=== PATIENT | female | born 1945 | race Caucasian/White ===

== ENCOUNTER 2019-02-28 18:32 | Emergency (ER) | payer MEDICARE, BC, SELFPAY ==
[2019-02-28 18:39] VITALS: BP 143/103; PULSE 90; RESP 16; TEMP 36.8; O2SAT 98; BMI 24.1
--- NOTE | 2019-02-28 18:39 | W.ED.UPPEXIN ---
HPI - Extremity Injury (Upper) General: Chief Complaint: Extremity Injury, Upper Stated Complaint: L HAND INJURY Time Seen by Provider: 02/28/19 18:39 Source: patient and family Mode of arrival: ambulatory Limitations: no limitations History of Present Illness: HPI narrative: scratched hand on a deck; reports bleeding uncontrolled MD complaint: injury to: left and hand Onset (ago): minute(s) Other Extremity Injury: Left: hand Other injuries: none Place: home Severity: mild Relieving factors: none Exacerbating factors: none Context: other (scrape ) Associated symptoms: Reports no associated symptoms Review of Systems Skin/Breast: Reports: other (skin tear to L hand) PFSH ED PFSH: Statuses (acute, chronic, etc) shown below reflect problem list status as previously entered and may not be historically accurate Social History Smoking and tobacco status: current every day smoker Physical Exam Const: COMMON NORMALS: no apparent distress, oriented x3, alert and well nourished Neuro: COMMON NORMALS: oriented x3 SENSORIUM/ORIENTATION: Yes alert Skin: NARRATIVE SKIN EXAM: skin tear to dorsum of L hand; small venous bleed Procedures Laceration Laceration 1: Site: hand (L dorsum hand) Side (If applicable): left Size (cm): 3.5 Description: flap Depth: simple, single layer Pre-repair: irrigated extensively Skin layer closed with: other (steri strips; small venous bleed with tied off with vicryl stitch ) Course Vital Signs: Vital signs: Vital Signs Temperature 98.2 F 02/28/19 18:39 Pulse Rate 72 02/28/19 19:14 Respiratory Rate 16 02/28/19 18:39 Blood Pressure 143/103 02/28/19 18:39 Pulse Oximetry 98 02/28/19 18:39 Discharge Plan Discharge Patient Disposition: Home, Self-Care Clinical Impression: Skin tear of hand without complication Condition: Stable Discharge Orders: Discharge Order (Routine); Ordered 02/28/19 Ordered By: Lakshmi Whyte Referrals: Vinny Moss [Family Provider] - Activity Restrictions/Additional Instructions: Steri strips should fall off on their own in 7-10 days. Keep wound clean. If bleeding returns and cannot be controlled at home please return to ED. Coding Level of Care Code ED Package Yarns Drying Machine Operator for Judyg Fwd Exam Problem Focused
[2019-02-28 19:14] VITALS: PULSE 72
[2019-02-28 20:07] VITALS: BP 128/77; PULSE 68; RESP 20; O2SAT 96
== END 2019-02-28 20:08 | disposition home or self-care (01) ==
PROVIDERS: Emergency Provider Physician Assistant; Family Provider Student in an Organized Health Care Education/Training Program
DX: S61.412A Laceration without foreign body of left hand, initial encounter (principal); W45.8XXA Other foreign body or object entering through skin, initial encounter; F17.210 Nicotine dependence, cigarettes, uncomplicated
CPT/HCPCS: 12002; 99281

== ENCOUNTER → 2022-01-16 09:17 | Outpatient (BNVA) | payer MEDICARE, BC, SELFPAY | PROVIDERS: Family Provider Student in an Organized Health Care Education/Training Program; Visit Provider Nurse Practitioner Family | DX: R50.9 Fever, unspecified (principal); R10.11 Right upper quadrant pain | CPT/HCPCS: 80053; 80074; 83690; 87400 ==

== ENCOUNTER 2023-05-09 11:52 | Inpatient (IN) | payer MEDICARE, BC, SELFPAY ==
[2023-05-09] VITALS (10 sets, daily range): BP systolic 129–145; BP diastolic 81–92; PULSE 74–106; RESP 16–26; TEMP 36.6–36.8; O2SAT 95–99; BMI 25.6
--- NOTE | 2023-05-09 12:00 | XRR_ITS ---
PROCEDURE INFORMATION: Exam: XR Right Shoulder Exam date and time: 05/09/2023 12:10 PM Age: 78 years old Clinical indication: Injury or trauma; Fall; Blunt trauma (contusions or hematomas); Shoulder; Right TECHNIQUE: Imaging protocol: Radiologic exam of the right shoulder. Views: 2 or more views. COMPARISON: CR XR soft tissue neck [id number] 10/28/2017 8:53 PM FINDINGS: Bones/joints: There is an acute comminuted fracture involving the humeral head with mild displacement of fracture fragments laterally. The dominant fracture line extends through the base of the humeral head. Soft tissues: Normal. XR/XR shoulder RT min 2V* [id number] IMPRESSION: Acute comminuted humeral head fracture
--- NOTE | 2023-05-09 12:11 | XRR_ITS ---
PROCEDURE INFORMATION: Exam: XR Right Hip Exam date and time: 05/09/2023 12:22 PM Age: 78 years old Clinical indication: Injury or trauma; Fall; Blunt trauma (contusions or hematomas); Right; Hip; Additional info: Trauma - need pelvis too TECHNIQUE: Imaging protocol: Radiologic exam of the right hip. Views: 1 view hip with pelvis when performed. COMPARISON: CR XR pelvis 1-2V* [id number] 10/28/2017 8:28 PM FINDINGS: Bones/joints: A hip prosthesis is well seated and well aligned. I see no worrisome abnormality. Soft tissues: Unremarkable. XR/XR hip RT 2-3V wo/w pel* [id number] IMPRESSION: No acute findings.
[2023-05-09] MEDS: fentaNYL 50 mcg/mL INJ 2mL IVP (12:19)
--- NOTE | 2023-05-09 12:25 | W.ED.EXTPRO ---
HPI - Extremity Problem General: Chief complaint: Extremity Injury, Upper Stated complaint: rt shoulder pain post fall Time Seen by Provider: 05/09/23 12:00 Source: patient Mode of arrival: EMS History of Present Illness: 78-year-old female was at a local restaurant patient had mechanical ground-level fall. She slipped on the floor and landed on her right side complaining of right hip pain and right shoulder pain unable to move the right arm. She has no numbness and tingling to the arm she did not strike her head she did not lose consciousness. She denies any other injuries in the right hip and right shoulder. MD Complaint: extremity pain Onset (ago): minute(s) Pain Consistency: constant Location: right (Hip and shoulder) Quality: sharp Relieving factors: immobilization and rest Exacerbating factors: range of motion Associated symptoms: Deny arthralgias, chest pain, fever(s), myalgias, rash or short of breath Review of Systems Const: Denies: fever(s) Card: Denies: chest pain Resp: Denies: dyspnea GI: Denies: abdominal pain : Denies: dysuria, urinary frequency or urinary urgency Musc: Reports: joint pain; Denies: neck pain or back pain Skin/Breast: Denies: rash PFSH ED PFSH: Social History Smoking and tobacco/nicotine status: current every day tobacco/nicotine user Physical Exam Const: GENERAL APPEARANCE: cooperative and comfortable ORIENTATION/CONSCIOUSNESS: Yes awake, Yes oriented to person, Yes oriented to place and Yes oriented to time HENMT: COMMON NORMALS: normocephalic, atraumatic and hearing grossly normal bilaterally HEAD & SCALP: normocephalic and atraumatic Resp: COMMON NORMALS: normal respiratory effort, No retractions, No use of accessory muscles and clear to auscultation bilaterally AUSCULTATION: clear to auscultation bilaterally Cardio: COMMON NORMALS: regular rate, regular rhythm and No murmurs present (Cardio) RATE: regular rate RHYTHM: regular rhythm GI: COMMON NORMALS: Soft to palpation and No hepatosplenomegaly present AUSCULTATION: Yes normoactive bowel sounds PALPATION: Yes Soft to palpation, No Tenderness to palpation present (GI), No Guarding due to palpation present (GI) and Yes No hepatosplenomegaly present Extremity: COMMON NORMALS: normal to inspection, capillary refill normal, no clubbing, cyanosis or edema, no calf tenderness and no pedal edema OTHER: Swelling of the proximal humerus consistent with proximal humerus fracture Neuro: SENSORIUM/ORIENTATION: Yes oriented to person, Yes oriented to place and Yes oriented to time Skin: COMMON NORMALS: no rashes or lesions noted GENERAL SKIN EXAM: no rashes or lesions noted Course Vital Signs: Vital signs: Vital Signs Temperature 98.3 F 05/09/23 11:54 Pulse Rate 76 05/09/23 15:24 Respiratory Rate 18 05/09/23 15:24 Blood Pressure 129/85 05/09/23 15:24 Pulse Oximetry 98 05/09/23 15:24 Oxygen Delivery Me thod Room Air 05/09/23 13:20 MDM - Extremity (Nontraumatic) Medical Decision Making Initially patient had relatively obvious proximal humerus fracture confirmed on x-ray. She is complaining of hip pain on plain film there was no fracture. We made plans to discharge her when she got up she complained of severe pain in the hip CT was done Dr. Church reports an occult fracture of the greater trochanter. I reviewed it with Dr. Lr who is on-call for orthopedics and she states it was a nonsurgical fracture and would be managed conservatively recommended discharge with pain medications and follow-up in the office. Patient was given several rounds of pain medications but noted a unable to manage she even standing to transfer. We talked about admission for pain control with plan to go to senior care for rehab she initially was opposed to this but then as she found herself unable to manage even standing ultimately she agreed to it. Patiently placed on observation for the proximal humerus and proximal femur fracture with the plan to go to senior care for rehab. Medical Records I reviewed the patient's medical records. Lab Data Radiology Impressions Shoulder X-Ray 05/09/23 12:00 IMPRESSION: Acute comminuted humeral head fracture Hip/Pelvis X-Ray 05/09/23 12:11 IMPRESSION: No acute findings. All radiology interpretation(s) finalized by discharge Discharge Plan Discharge Patient Disposition: Placed in Observation Clinical Impression: Fracture of proximal end of right humerus, Fracture of greater trochanter of right femur Condition: Stable Prescriptions: New hydrocodone-acetaminophen 5-325 mg tablet 1 tab PO Q6H PRN (Reason: pain) Qty: 20 0RF No Action No Known Home Medications Other Ambulatory Orders: DME: Wheelchair (Order) Location: None Selected Ordered By: Addy Hackett Discharge Diet: Usual diet Discharge Activity: Limit activity as instructed Patient Instructions: Proximal Humerus Fracture (ED), Opioid Safety, Pain Management Activity Restrictions/Additional Instructions: Thank you for choosing [facility] for your healthcare needs today. Please realize this is an emergency room and that we are providing you with a medical screening exam and this may not be complete and all inclusive of all the testing and or work up that you may need to determine your ailment or severity of your illness. It is very important that you follow up as instructed or that you return to the Emergency Department should you have concerns or if your condition changes or worsens in any way. You were seen today after a fall. You have a fracture on the upper end of your humerus (upper arm bone). You should use the sling that you were fitted for in the emergency room as well as the pain medications you are given by prescription until you are released by orthopedics. Case management make arrangements for you to have an outpatient consultation with the orthopedic clinic. There is also a nondisplaced fracture of the greater trochanter (small knob of bone on the hip. This is adjacent to the prosthesis it was not visible on the plain films but was noted on the CT which was done when he had complained of pain after standing. These fractures are allowed to heal on their own and do not require any surgical intervention. Normally we will allow weightbearing as tolerated but because of your arm fracture you will not be able to use a walker for some time. You can use a wheelchair to get around. The orthopedic physician will review the greater trochanter fracture with you as well. Prior to your discharge today Dr. Mckinley the orthopedic on-call physician reviewed your CT. Coding Level of Care Code ED Director Business for Rolanda Wu
--- NOTE | 2023-05-09 13:24 | CT_ITS ---
WS: [id number] CT PELVIS NONCONTRAST HISTORY: trauma - pain after fall TECHNIQUE: Contiguous imaging is performed of the pelvis without contrast. Coronal and sagittal refor mats are reviewed. All CT scans at [facility] use at least one of these dose optimization gretta hniques: automated exposure control; mA and/or kV adjustment per patient size (includes targeted exam s where dose is matched to clinical indication); or iterative reconstruction. DLP: 329.94 mGy.cm COMPARISON: Radiograph 05/09/2023 and pelvis 10/28/2017 Bilateral hip arthroplasties. Hip prostheses appear in good position and alignment. There is a soft tissue hematoma along the RIGHT lateral hip centered at the region of the greater tro chanter. There is a sclerotic line that is seen on the radiograph obtained on the same day just deep to the greater trochanter bursal distention. On the CT evaluation through the hip is a new nondisplac ed fracture involving the proximal femur at the region of the greater trochanter. Fracture extends fr om the lateral proximal femur anteriorly and posteriorly. No displacement. IMPRESSION: 1. Acute nondisplaced fracture proximal femur in a patient status post hip arthroplasty. New acute n ondisplaced fracture anteriorly, lateral and posterior to the intertrochanteric stem. 2. Soft tissue hematoma just lateral to the RIGHT greater trochanter.
[2023-05-09] MEDS: fentaNYL 50 mcg/mL INJ 2mL 25 MCG IVP (13:30)
--- NOTE | 2023-05-09 14:44 | PC.NURSE ---
Prestidigitator accessed note for Dr. Mckinley to assess imaging while in the operating room.
[2023-05-09] MEDS: HYDROmorphone 1 mg/mL INJ 1 mL 0.5 MG IVP ×2 (17:08→20:31)
[2023-05-09] MEDS: ondansetron 2 mg/ML SDV 2 mL 4 MG IVP (17:08)
--- NOTE | 2023-05-09 18:48 | PC.NURSE ---
Attempted report, nurse not available and will call me back
--- NOTE | 2023-05-09 18:51 | P.HP_ITS ---
Providers/Chief Complaint Admitting Physician: Thee Bledsoe MD Chief Complaint: rt shoulder pain post fall History of Present Illness Sarahi Joseph is a 78 year old female with no significant past medical history, no history of CAD, no history of COPD, no history of diabetes, no history of strokes, no significant medical problems, who presents [facility] for a fall. Patient tells me that today she was with her daughter at [facility], she got up to go to [employer], when she got up to the [employer], there is a fish tank, with linoleum gavin, she stepped towards it and slipped on the linoleum gavin, she fell no significant head trauma, no loss of consciousness, she fell on the right side, she could not get up off the floor, she tells me that a nurse rushed over and helped her until ambulance arrived, here in the emergency room she had imaging she has suffered a right humeral head fracture, currently in a sling, she has a right hip prosthesis, she tells me that she has her hip replacement in [place] it was elective for osteoarthritis, she is found to have an acute nondisplaced fracture of the proximal femur in the patient status post hip arthroplasty [id number] acute nondisplaced fracture anteriorly, lateral, posterior to the intertrochanteric stem, soft tissue hematoma just lateral to the right greater trochanter. ER provider Dr. Hackett, spoke to orthopedic doctor Dr. Mckinley, as per report from Dr. Daina Mckinley had reported that both fractures will be should be managed medically, pain control, PT OT, and deciding if patient needs placement. I was told that there was no acute interventions needed, and as per orthopedic surgery patient was currently not a surgical candidate. The hospitalist team was primarily called for these orthopedic fractures for pain control, due to intractable pain, and consideration of placement. I have gone over in detail with patient, unfortunately am not orthopedic physician, so I do not know the specific details involving fracture around the hardware for her right hip prosthesis, but I was told that it should be medically managed. I am going to order a CBC, CMP, blood work, start her on fluids, get her pain under control, have PT OT evaluate her and consideration of placement, patient is agreeable Review of Systems Const: Denies: fever(s) Card: Denies: chest pain Resp: Denies: dyspnea GI: Denies: abdominal pain Musc: Reports: extremity pain; Denies: back pain Neuro: Denies: headache(s) Medications/Allergies Home Medications Medication Instructions Recorded Confirmed Last Taken Type No Known Home Medications 01/16/22 01/16/22 Unknown History hydrocodone 5 mg-acetaminophen 325 1 tab PO Q6H PRN pain #20 tabs 05/09/23 Unknown Rx mg tablet Allergies Allergy/AdvReac Type Severity Reaction Status Date / Time aspirin Allergy ALGY-Anaphy Verified 01/16/22 09:12 laxis PFSH Acute PFSH: Social History Smoking and tobacco/nicotine status: current every day tobacco/nicotine user Vitals/I&O/Wt Last Vital Signs Temp 98.3 F 05/09/23 11:54 Pulse 106 H 05/09/23 18:25 Resp 16 05/09/23 18:25 BP 131/81 05/09/23 18:25 Pulse Ox 97 05/09/23 18:25 O2 Del Method Room Air 05/09/23 18:25 Weight last 48 hrs Weight 63.503 kg Physical Exam Const: COMMON NORMALS: no acute distress and patient oriented x3 Eye: COMMON NORMALS: Equal, round and reactive pupils present and EOMs intact bilaterally Resp: COMMON NORMALS: normal respiratory effort, No retractions, No use of accessory muscles and clear to auscultation bilaterally AUSCULTATION: clear to auscultation bilaterally Cardio: COMMON NORMALS: no JVD, regular rate, regular rhythm, S1 normal heart sound present and S2 normal heart sound present RATE: regular rate RHYTHM: regular rhythm HEART SOUNDS: S1 normal heart sound present and S2 normal heart sound present GI: COMMON NORMALS: Normal to inspection, nondistended, normoactive bowel sounds present, Soft to palpation and non-tender Extremity: COMMON NORMALS: no pedal edema Neuro: COMMON NORMALS: patient oriented x3 Psych: COMMON NORMALS: mental status grossly normal A&P Assessment and plan (1) Fracture of proximal end of right humerus: (2) Fracture of greater trochanter of right femur: Plan Fracture of proximal end of humerus XR/XR shoulder RT min 2V* [id number] IMPRESSION: Acute comminuted humeral head fracture Plan ? Currently in a sling ? Pain control ? Follow-up with orthopedic service as outpatient Fracture of greater trochanter of right femur in a patient status post hip arthroplasty 1. Acute nondisplaced fracture proximal femur in a patient status post hip arthroplasty. New acute nondisplaced fracture anteriorly, lateral and posterior to the intertrochanteric stem. 2. Soft tissue hematoma just lateral to the RIGHT greater trochanter. ? Plan ? Pain control ? PT OT, ? Follow-up with orthopedic service as outpatient ? CBC, CMP, TSH, UA, troponin series Intractable pain, pain control with oxycodone 5 mg every 4 hours as needed, with Dial to 1 mg every 12 hours breakthrough pain DNR/DNI, confirmed this with patient multiple times ? Lovenox for DVT prophylaxis Attestations Medical Necessity Statement*: Patient requires hospitalization, inpatient, greater than 2 midnights, for fracture of proximal right humerus, fracture of proximal fever Diagnoses Fracture of proximal end of right humerus S42.201A Fracture of greater trochanter of right femur S72.111A
[2023-05-09 19:08] LABS: Basophils % 0.2 %; Hematocrit 39.9 % (36-47); Lymphocytes # 0.6 10^3/uL (0.8-4.8); Lymphocytes % 3.8 %; Mean Corpuscular HGB Conc 33.8 g/dL (30-55); Mean Corpuscular Hemoglobin 32.1 pg (27-33); Mean Platelet Volume 10.2 fL (7.4-10.4); Monocytes # 0.6 10^3/uL (0.2-0.9); Monocytes % 3.9 %; Neutrophils # 13.63 10^3/uL (1.8-7.7); Neutrophils % 91.4 %; Nucleated Red Blood Cells % 0 %; Platelet Count 274 10^3/cmm (157-399); Red Cell Distribution Width 13.8 % (12.1-15.1)
[2023-05-09 19:17] LABS: INR 1.01 (0.8-1.2)
[2023-05-09 19:28] LABS: Troponin(5th) Baseline 7 ng/L (0-10)
[2023-05-09 19:33] LABS: NT Pro B Type Natriuretic Pept 64 pg/mL (0-450); Procalcitonin 0.11 ng/mL (0-0.5)
[2023-05-09 19:44] LABS: Alanine Aminotransferase 12 U/L (0-33); Albumin Level 4.1 g/dL (3.5-5.2); Alkaline Phosphatase 104 U/L (35-105); Anion Gap 18.2 (5-19); Aspartate Amino Transferase 13 U/L (0-32); Blood Urea Nitrogen 17 mg/dL (8-23); Calcium 9.3 mg/dL (8.5-10.5); Carbon Dioxide 24 mmol/L (22-29); Chloride 102 mmol/L (98-107); Creatinine Clr Calc Pharmacy 45.8325; Globulin 2.6 g/dL (1.3-4.6); Glucose 140 mg/dL (65-115); Osmolality Calculated 292 mOsm/kg (285-295); Phosphorus 3.6 mg/dL (2.5-4.5); Potassium 5.2 mmol/L (3.5-5.1); Sodium 139 mmol/L (136-145); Total Bilirubin 0.4 mg/dL (0.15-1.2); Total Protein 6.7 g/dL (6.6-8.7)
--- NOTE | 2023-05-09 19:57 | XRR_ITS ---
PROCEDURE INFORMATION: Exam: XR Chest Exam date and time: 05/09/2023 8:01 PM Age: 78 years old Clinical indication: Injury or trauma; Fall; Other: Unknown TECHNIQUE: Imaging protocol: Radiologic exam of the chest. Views: 1 view. COMPARISON: CR XR chest 1V [id number] 10/28/2017 8:15 PM FINDINGS: Lungs: Calcified granulomas in the left mid and lower lung zone. No focal consolidation. Pleural spaces: Unremarkable. No pleural effusion. No pneumothorax. Heart/Mediastinum: Unremarkable. No cardiomegaly. Vasculature: Unfolding of the thoracic aorta. Aortic arch Bones/joints: Comminuted fracture of the right greater tuberosity and right humeral head. Moderate degenerative disease of the bilateral acromioclavicular joints. XR/XR chest 1V portable [id number] IMPRESSION: No posttraumatic changes in the chest.
[2023-05-09 20:28] LABS: Chol HDL Ratio 3.48 mg/dL (0.0-4.40); Cholesterol 233 mg/dL (0-200); HDL Cholesterol 67 mg/dL (60-100); LDL Cholesterol Calculated 146 mg/dL (50-129); LDL HDL Ratio 2.18 RATIO (0.00-3.22); Thyroid Stimulating Hormone 1.37 uIU/mL (0.27-4.20); Triglycerides 100 mg/dL (0-150)
[2023-05-09] MEDS: pantoprazole 40 mg SDV IVP (20:31)
[2023-05-09] MEDS: sodium chloride 0.9% 1,000 ML 75 ML IV (20:32)
[2023-05-09 20:46] LABS: Reflex Lactate Order REFLEX LACTIC ORDERD
[2023-05-09 21:22] LABS: Estmated Average Glucose 111; Hemoglobin A1C 5.5 % (4.0-6.0)
[2023-05-09 21:30] LABS: Lactic Acid level (Lactate) 2.7 mmol/L (0.5-2.2)
[2023-05-09 21:35] LABS: Troponin 5 2HR 8.03 ng/L (0-10); Troponin 5 2HR Delta 1.03 ABS# (0-10)
[2023-05-09] MEDS: oxyCODONE 5 mg IR Tab/Cap PO (22:11)
[2023-05-10] VITALS (13 sets, daily range): BP systolic 107–155; BP diastolic 52–82; PULSE 96–108; RESP 16–19; TEMP 36.6–37.2; O2SAT 91–94; BMI 26.8
[2023-05-10 00:52] LABS: Basophils % 0.2 %; Eosinophils % 0.2 %; Hematocrit 35.9 % (36-47); Lymphocytes # 1.6 10^3/uL (0.8-4.8); Lymphocytes % 13.5 %; Mean Corpuscular HGB Conc 33.7 g/dL (30-55); Mean Corpuscular Hemoglobin 32.3 pg (27-33); Mean Corpuscular Volume 95.7 fl (85-98); Mean Platelet Volume 10.3 fL (7.4-10.4); Monocytes # 0.7 10^3/uL (0.2-0.9); Monocytes % 6.4 %; Neutrophils # 9.11 10^3/uL (1.8-7.7); Neutrophils % 79.2 %; Nucleated Red Blood Cells % 0 %; Platelet Count 253 10^3/cmm (157-399); Red Blood Count 3.75 10^6/uL (3.85-5.65); Red Cell Distribution Width 13.8 % (12.1-15.1); White Blood Count 11.49 10^3/uL (3.29-11.43)
[2023-05-10 01:13] LABS: Alanine Aminotransferase 10 U/L (0-33); Albumin Level 3.6 g/dL (3.5-5.2); Alkaline Phosphatase 88 U/L (35-105); Anion Gap 15.9 (5-19); Aspartate Amino Transferase 11 U/L (0-32); Blood Urea Nitrogen 17 mg/dL (8-23); Calcium 8.7 mg/dL (8.5-10.5); Carbon Dioxide 26 mmol/L (22-29); Chloride 101 mmol/L (98-107); Creatinine Clr Calc Pharmacy 45.8325; Globulin 2.5 g/dL (1.3-4.6); Glucose 130 mg/dL (65-115); Magnesium 2.1 mg/dL (1.7-2.3); Osmolality Calculated 289 mOsm/kg (285-295); Phosphorus 3.6 mg/dL (2.5-4.5); Potassium 4.9 mmol/L (3.5-5.1); Sodium 138 mmol/L (136-145); Total Bilirubin 0.4 mg/dL (0.15-1.2); Total Protein 6.1 g/dL (6.6-8.7); Troponin 5 6HR 8.61 ng/L (0-10); Troponin 5 6HR Delta 1.61 ng/L (0-12)
[2023-05-10] MEDS: oxyCODONE 5 mg IR Tab/Cap PO ×2 (01:51→06:12)
--- NOTE | 2023-05-10 01:58 | DCPLANNER ---
Message sent to ortho for a follow up on RT proximal humerus fx
[2023-05-10 07:14] LABS: Add Urine Microscopic? YES; Bilirubin Urine Neg (Negative); Blood Urine Neg (Negative); Glucose Urine UA Norm (Normal); Ketones Urine 1+ (Negative); Leukocyte Esterase Urine Trace (Negative); Nitrate Urine Negative (Negative); Protein Urine Trace (Negative); RBC Urine 0-4 /hpf (0-2); Specific Gravity, Urine 1.025 (1.005-1.030); Urine Appearance Clear (CLEAR); Urine Color Yellow (Yellow); Urobilinogen Urine Neg (Negative); WBC Urine 0-4 /hpf (0-5); pH Urine 5 (5-7)
[2023-05-10 07:15] LABS: Add Urine Culture? No; Bacteria Urine 2+ /hpf; Mucus Urine TRACE /hpf
[2023-05-10] MEDS: cefTRIAXone 1,000 MG in sodium chloride 0.9% (plus) 50 ML 100 MG IV (08:15)
[2023-05-10] MEDS: enoxaparin 40 mg/0.4 mL Syringe SUBCUT (08:15)
[2023-05-10] MEDS: sodium chloride 0.9% 1,000 ML 75 ML IV ×2 (08:20→20:16)
[2023-05-10] MEDS: HYDROmorphone 1 mg/mL INJ 1 mL 0.5 MG IVP ×2 (09:31→22:08)
--- NOTE | 2023-05-10 09:52 | PC.CHAP ---
Pastoral Care Encounter/Spiritual Assessment Type of Contact [] Declined museum librarian visit [] Patient/Family/Request visit [] Outpatient visit [] Follow-up visit [] Physician referral [] Code/Alert [x] Routine visit [] Staff referral [] Actively dying [] Patient sleeping [] Family support [] [] Out of room [] Palliative care [] [] Receiving care in room [] Pre-surgical visit [] Trauma [] Long length of stay [] ICU visit [] Other: Relational/Emotional Strength [x] Patient feels connected with others/family/visitors/staff [x] Distress [] Loneliness/isolation [] Abandonment Spirituality of Patient [x] Person of [place] [] Attends Judaism of their [place] [x] Believes in Prayer [] Reads Bible or Tenriism materials [] There are Spiritual issues to be addressed Junior Account Manager Interventions [x] Prayer [x] Active listening [x] Non-anxious presence [x] Spiritual/emotional support [] Crisis/trauma care [] Spiritual counseling [] Bereavement support [] Provided bereavement packet [] Provided Bible/devotional materials [] Provided toy/stuffed animal, coloring book to patient or family member [] Provided Communion [] Anointing/[place] [] Salvation [x] Completed spiritual assessment [] Other: Impact on Illness or Injury [] Angry [] Fearful [] Anxious [] Often cries [] Exhaustion [] Unable to work [] Unable to attend denominational [] Unable to walk/stand [] Unable to read [] Unable to drive [] Unable to eat/drink [] Unable to sleep [] Unable to be with family [] Patient intubated [] Other: Summary Time spent with patient 5 min
[2023-05-10] MEDS: oxyCODONE 5 mg IR Tab/Cap 10 MG PO ×2 (13:16→20:15)
--- NOTE | 2023-05-10 13:18 | P.PN_ITS ---
Subjective 2 Subjective: Patient was seen this morning, she continues to have severe right shoulder pain, pain in right hip, Vitals/I&O/Wt Last Vital Signs Temp 97.9 F 05/10/23 12:00 Pulse 103 H 05/10/23 12:00 Resp 18 05/10/23 13:16 BP 119/75 05/10/23 12:00 Pulse Ox 91 05/10/23 12:00 O2 Del Method Nasal Cannula 05/10/23 04:00 O2 Flow Rate 1 05/10/23 04:00 FiO2 21 05/09/23 21:01 05/09/23 05/10/23 05/10/23 22:59 06:59 14:59 Intake Total 250 / 250 250 / 500 1610 / 1610 Balance 250 / 250 250 / 500 1610 / 1610 Weight last 48 hrs Weight 66.587 kg Weight 63.503 kg Weight 63.503 kg Physical Exam 2 Const: COMMON NORMALS: no acute distress and patient oriented x3 Resp: COMMON NORMALS: normal respiratory effort, No retractions, No use of accessory muscles and clear to auscultation bilaterally AUSCULTATION: clear to auscultation bilaterally Cardio: COMMON NORMALS: regular rate, regular rhythm, S1 normal heart sound present and S2 normal heart sound present RATE: regular rate RHYTHM: r egular rhythm HEART SOUNDS: S1 normal heart sound present and S2 normal heart sound present GI: COMMON NORMALS: Normal to inspection, nondistended, normoactive bowel sounds present and non-tender Extremity: COMMON NORMALS: no pedal edema Neuro: COMMON NORMALS: patient oriented x3 Psych: COMMON NORMALS: mental status grossly normal Data 05/10/23 00:44 05/10/23 00:44 A&P Assessment and plan (1) Fracture of proximal end of right humerus: (2) Fracture of greater trochanter of right femur: (3) Urinary tract infection: (4) Intractable pain: Plan Fracture of proximal end of humerus XR/XR shoulder RT min 2V* [id number] IMPRESSION: Acute comminuted humeral head fracture Plan ? Currently in a sling, nonweightbearing ? Pain control ? Follow-up with orthopedic service as outpatient Fracture of greater trochanter of right femur in a patient status post hip arthroplasty 1. Acute nondisplaced fracture proximal femur in a patient status post hip arthroplasty. New acute nondisplaced fracture anteriorly, lateral and posterior to the intertrochanteric stem. 2. Soft tissue hematoma just lateral to the RIGHT greater trochanter. ? Plan -As per ER and orthopedic service patient is weightbearing as tolerated ? Pain control ? PT OT, ? Follow-up with orthopedic service as outpatient Intractable pain, pain control with oxycodone 10 mg every 4 hours as needed, Dilaudid 1 mg every 12 hours for breakthrough pain UTI, IV Rocephin DNR/DNI, confirmed this with patient multiple times ? Lovenox for DVT prophylaxis Attestations 2 Medical Necessity Statement*: Patient requires hospitalization for intractable humeral head right shoulder pain, right hip pain Diagnoses Fracture of proximal end of right humerus S42.201A Fracture of greater trochanter of right femur S72.111A Urinary tract infection N39.0 Intractable pain R52
[2023-05-10] MEDS: pantoprazole 40 mg SDV IVP (20:16)
[2023-05-11] VITALS (14 sets, daily range): BP systolic 111–144; BP diastolic 69–79; PULSE 83–108; RESP 16–22; TEMP 36.2–37.1; O2SAT 92–95
[2023-05-11] MEDS: oxyCODONE 5 mg IR Tab/Cap 10 MG PO ×3 (04:13→20:59)
[2023-05-11 04:51] LABS: Basophils % 0.3 %; Eosinophils # 0.2 10^3/uL (0.0-0.8); Eosinophils % 1.6 %; Hematocrit 30.9 % (36-47); Lymphocytes # 2.1 10^3/uL (0.8-4.8); Lymphocytes % 22.6 %; Mean Corpuscular HGB Conc 32.7 g/dL (30-55); Mean Corpuscular Hemoglobin 32.2 pg (27-33); Mean Corpuscular Volume 98.4 fl (85-98); Mean Platelet Volume 10.5 fL (7.4-10.4); Monocytes # 0.9 10^3/uL (0.2-0.9); Neutrophils # 5.96 10^3/uL (1.8-7.7); Neutrophils % 63.9 %; Nucleated Red Blood Cells % 0 %; Platelet Count 203 10^3/cmm (157-399); Red Blood Count 3.14 10^6/uL (3.85-5.65); Red Cell Distribution Width 13.9 % (12.1-15.1); White Blood Count 9.33 10^3/uL (3.29-11.43)
[2023-05-11 05:14] LABS: Alanine Aminotransferase 9 U/L (0-33); Albumin Level 3.1 g/dL (3.5-5.2); Alkaline Phosphatase 82 U/L (35-105); Anion Gap 10.9 (5-19); Aspartate Amino Transferase 14 U/L (0-32); Blood Urea Nitrogen 7 mg/dL (8-23); Carbon Dioxide 24 mmol/L (22-29); Chloride 105 mmol/L (98-107); Creatinine Clr Calc Pharmacy 53.6195; Globulin 2.5 g/dL (1.3-4.6); Glucose 106 mg/dL (65-115); Magnesium 1.8 mg/dL (1.7-2.3); Osmolality Calculated 280 mOsm/kg (285-295); Phosphorus 2.1 mg/dL (2.5-4.5); Potassium 3.9 mmol/L (3.5-5.1); Sodium 136 mmol/L (136-145); Total Bilirubin 0.4 mg/dL (0.15-1.2); Total Protein 5.6 g/dL (6.6-8.7)
[2023-05-11] MEDS: cefTRIAXone 1,000 MG in sodium chloride 0.9% (plus) 50 ML 100 MG IV (07:42)
[2023-05-11] MEDS: oxyCODONE 10 mg ER (12 HR) Tablet PO ×2 (09:07→18:01)
[2023-05-11] MEDS: enoxaparin 40 mg/0.4 mL Syringe SUBCUT (09:07)
[2023-05-11] MEDS: sodium chloride 0.9% 1,000 ML 75 ML IV (13:25)
--- NOTE | 2023-05-11 15:19 | P.PN_ITS ---
Subjective 2 Subjective: Patient was seen this morning, she continues to have severe intractable pain she is very teary due to his severe pain, she did work with physical therapy, but it was limited due to severe pain: She could do a shuffle in terms of her gait, she has not been able to fully bear weight in her right leg, continues to have severe intractable pain we discussed placing her on oxycodone ER 10 mg twice daily, I have increased her oxycodone to 10 every 4 hours as needed, if she continues to have pain we can always increase oxycodone ER to 20 twice daily, we also discussed possible fentanyl patch low-dose however she becomes very teary and tells me that she absolutely does not want to have fentanyl, as her due to fentanyl patch overdose, she denies any head lightheadedness, dizziness, no shortness of breath no difficulty breathing, will watch her clinical status closely, she is agreeable, patient's daughter is at bedside, also had a discussion with patient's daughter Vitals/I&O/Wt Last Vital Signs Temp 97.2 F L 05/11/23 12:41 Pulse 108 H 05/11/23 12:41 Resp 20 H 05/11/23 13:29 BP 114/78 05/11/23 12:41 Pulse Ox 92 05/11/23 12:41 O2 Del Method Room Air 05/11/23 12:41 O2 Flow Rate 1 05/10/23 04:00 FiO2 21 05/09/23 21:01 05/11/23 05/11/23 05/11/23 06:59 14:59 22:59 Intake Total 120 / 2985 1290 / 1290 240 / 1530 Balance 120 / 2985 1290 / 1290 240 / 1530 Weight last 48 hrs Weight 69.037 kg Weight 66.587 kg Weight 63.503 kg Physical Exam 2 Const: COMMON NORMALS: no acute distress and patient oriented x3 Resp: COMMON NORMALS: normal respiratory effort, No retractions, No use of accessory muscles and clear to auscultation bilaterally AUSCULTATION: clear to auscultation bilaterally Cardio: COMMON NORMALS: regular rate, regular rhythm, S1 normal heart sound present and S2 normal heart sound present RATE: regular rate RHYTHM: r egular rhythm HEART SOUNDS: S1 normal heart sound present and S2 normal heart sound present GI: COMMON NORMALS: Normal to inspection, nondistended, normoactive bowel sounds present and non-tender Extremity: COMMON NORMALS: no pedal edema Neuro: COMMON NORMALS: patient oriented x3 Psych: COMMON NORMALS: mental status grossly normal Data 05/11/23 04:13 05/11/23 04:13 A&P Assessment and plan (1) Fracture of proximal end of right humerus: (2) Fracture of greater trochanter of right femur: (3) Urinary tract infection: (4) Intractable pain: Plan Fracture of proximal end of humerus XR/XR shoulder RT min 2V* [id number] IMPRESSION: Acute comminuted humeral head fracture Plan ? Currently in a sling, nonweightbearing ? Pain control ? Follow-up with orthopedic service as outpatient Fracture of greater trochanter of right femur in a patient status post hip arthroplasty 1. Acute nondisplaced fracture proximal femur in a patient status post hip arthroplasty. New acute nondisplaced fracture anteriorly, lateral and posterior to the intertrochanteric stem. 2. Soft tissue hematoma just lateral to the RIGHT greater trochanter. ? Plan -As per ER and orthopedic service patient is weightbearing as tolerated ? Pain control ? PT OT, ? Follow-up with orthopedic service as outpatient Intractable pain, pain control with oxycodone 10 mg every 4 hours as needed, Dilaudid 1 mg every 12 hours for breakthrough pain UTI, IV Rocephin DNR/DNI, confirmed this with patient multiple times ? Lovenox for DVT prophylaxis continues to have severe intractable pain we discussed placing her on oxycodone ER 10 mg twice daily, I have increased her oxycodone to 10 every 4 hours as needed, if she continues to have pain we can always increase oxycodone ER to 20 twice daily, we also discussed possible fentanyl patch low-dose however she becomes very teary and tells me that she absolutely does not want to have fentanyl, as her due to fentanyl patch overdose, she denies any head lightheadedness, dizziness, no shortness of breath no difficulty breathing, will watch her clinical status closely, she is agreeable, patient's daughter is at bedside, also had a discussion with patient's daughter Attestations 2 Medical Necessity Statement*: Patient requires hospitalization due to intractable pain, with hip fracture, right humeral head fracture Diagnoses Fracture of proximal end of right humerus S42.201A Fracture of greater trochanter of right femur S72.111A Urinary tract infection N39.0 Intractable pain R52
[2023-05-11] MEDS: pantoprazole 40 mg SDV IVP (21:37)
[2023-05-12] VITALS (10 sets, daily range): BP systolic 115–145; BP diastolic 73–84; PULSE 77–114; RESP 16–20; TEMP 36.4–36.6; O2SAT 91–94
--- NOTE | 2023-05-12 02:47 | PC.NURSE ---
pt used bed scott was unable to measure output
[2023-05-12] MEDS: oxyCODONE 5 mg IR Tab/Cap 10 MG PO ×3 (02:52→16:36)
[2023-05-12 03:12] LABS: Basophils % 0.5 %; Eosinophils # 0.2 10^3/uL (0.0-0.8); Eosinophils % 2.3 %; Hematocrit 27.6 % (36-47); Lymphocytes # 2.3 10^3/uL (0.8-4.8); Lymphocytes % 26.3 %; Mean Corpuscular Hemoglobin 31.9 pg (27-33); Mean Corpuscular Volume 96.8 fl (85-98); Monocytes # 0.9 10^3/uL (0.2-0.9); Monocytes % 10.1 %; Neutrophils # 5.06 10^3/uL (1.8-7.7); Neutrophils % 58.8 %; Nucleated Red Blood Cells % 0 %; Platelet Count 176 10^3/cmm (157-399); Red Blood Count 2.85 10^6/uL (3.85-5.65); Red Cell Distribution Width 13.8 % (12.1-15.1)
[2023-05-12 03:45] LABS: Alanine Aminotransferase 8 U/L (0-33); Albumin Level 2.9 g/dL (3.5-5.2); Alkaline Phosphatase 72 U/L (35-105); Anion Gap 10.7 (5-19); Aspartate Amino Transferase 12 U/L (0-32); Blood Urea Nitrogen 7 mg/dL (8-23); Calcium 8.1 mg/dL (8.5-10.5); Carbon Dioxide 26 mmol/L (22-29); Chloride 102 mmol/L (98-107); Creatinine Clr Calc Pharmacy 53.6195; Globulin 2.3 g/dL (1.3-4.6); Glucose 107 mg/dL (65-115); Magnesium 1.8 mg/dL (1.7-2.3); Osmolality Calculated 278 mOsm/kg (285-295); Potassium 3.7 mmol/L (3.5-5.1); Sodium 135 mmol/L (136-145); Total Bilirubin 0.3 mg/dL (0.15-1.2); Total Protein 5.2 g/dL (6.6-8.7)
[2023-05-12] MEDS: enoxaparin 40 mg/0.4 mL Syringe SUBCUT (07:56)
[2023-05-12] MEDS: oxyCODONE 10 mg ER (12 HR) Tablet PO ×2 (07:57→18:01)
[2023-05-12] MEDS: cefTRIAXone 1,000 MG in sodium chloride 0.9% (plus) 50 ML 100 MG IV (07:57)
[2023-05-12 09:27] LABS: Ferritin 222 ng/mL (15-150); Iron 27 ug/dL (37-145); Percent Saturation 15.7 % (20-50); Total Iron Binding Capacity 171 mcg/dl; Unsaturated Iron Binding 144 ug/dL (112-347)
[2023-05-12 09:42] LABS: Folate Level 7.2 ng/mL (4.8-37.3)
[2023-05-12 09:43] LABS: Vitamin B12 288 pg/mL (232-1245)
[2023-05-12 12:34] LABS: Basophils # 0.1 10^3/uL (0.0-0.1); Basophils % 0.6 %; Eosinophils # 0.2 10^3/uL (0.0-0.8); Eosinophils % 1.7 %; Hematocrit 31.9 % (36-47); Lymphocytes # 1.4 10^3/uL (0.8-4.8); Lymphocytes % 15.3 %; Mean Corpuscular HGB Conc 32.6 g/dL (30-55); Mean Corpuscular Hemoglobin 32.2 pg (27-33); Mean Corpuscular Volume 98.8 fl (85-98); Mean Platelet Volume 10.4 fL (7.4-10.4); Monocytes % 10.8 %; Neutrophils # 6.29 10^3/uL (1.8-7.7); Neutrophils % 69.6 %; Nucleated Red Blood Cells % 0 %; Platelet Count 212 10^3/cmm (157-399); Red Blood Count 3.23 10^6/uL (3.85-5.65); Red Cell Distribution Width 13.7 % (12.1-15.1); White Blood Count 9.02 10^3/uL (3.29-11.43)
--- NOTE | 2023-05-12 14:00 | P.PN_ITS ---
Subjective 2 Subjective: Patient was seen this morning, she tells me that her pain is more under control, she still not ambulating as well as she would hope, her pain does increase sometimes intolerable with physical therapy Vitals/I&O/Wt Last Vital Signs Temp 97.7 F 05/12/23 11:27 Pulse 108 H 05/12/23 11:27 Resp 20 H 05/12/23 11:27 BP 138/84 05/12/23 11:27 Pulse Ox 91 05/12/23 11:27 O2 Del Method Room Air 05/12/23 11:27 O2 Flow Rate 1 05/10/23 04:00 FiO2 21 05/09/23 21:01 05/11/23 05/12/23 05/12/23 22:59 06:59 14:59 Intake Total 1480 / 2770 480 / 3250 770 / 770 Balance 1480 / 2770 480 / 3250 770 / 770 Weight last 48 hrs Weight 69.541 kg Weight 69.037 kg Physical Exam 2 Const: COMMON NORMALS: no acute distress and patient oriented x3 Resp: COMMON NORMALS: normal respiratory effort, No retractions, No use of accessory muscles and clear to auscultation bilaterally AUSCULTATION: clear to auscultation bilaterally Cardio: COMMON NORMALS: regular rate, regular rhythm, S1 normal heart sound present and S2 normal heart sound present RATE: regular rate RHYTHM: r egular rhythm HEART SOUNDS: S1 normal heart sound present and S2 normal heart sound present GI: COMMON NORMALS: Normal to inspection, nondistended, normoactive bowel sounds present and non-tender Extremity: COMMON NORMALS: no pedal edema NARRATIVE EXTREMITY EXAM: Right arm in a sling Neuro: COMMON NORMALS: patient oriented x3 Psych: COMMON NORMALS: mental status grossly normal Data 05/12/23 12:18 05/12/23 02:54 A&P Assessment and plan (1) Fracture of proximal end of right humerus: (2) Fracture of greater trochanter of right femur: (3) Urinary tract infection: (4) Intractable pain: Plan Fracture of proximal end of humerus XR/XR shoulder RT min 2V* [id number] IMPRESSION: Acute comminuted humeral head fracture Plan ? Currently in a sling, nonweightbearing ? Pain control ? Follow-up with orthopedic service as outpatient Fracture of greater trochanter of right femur in a patient status post hip arthroplasty 1. Acute nondisplaced fracture proximal femur in a patient status post hip arthroplasty. New acute nondisplaced fracture anteriorly, lateral and posterior to the intertrochanteric stem. 2. Soft tissue hematoma just lateral to the RIGHT greater trochanter. ? Plan -As per ER and orthopedic service patient is weightbearing as tolerated ? Pain control oxycodone ER 10 mg twice daily, with oxycodone IR 10 mg every 4 hours as needed for breakthrough pain ? PT OT, ? Follow-up with orthopedic service as outpatient Intractable pain, pain control with oxycodone 10 mg every 4 hours as needed, Dilaudid 1 mg every 12 hours for breakthrough pain UTI, IV Rocephin Acute anemia, monitor hemoglobin, ferritin, her DNR/DNI, confirmed this with patient multiple times ? Lovenox for DVT prophylaxis Attestations 2 Medical Necessity Statement*: Patient requires hospitalization for right proximal humerus fracture, right greater trochanteric fracture of right femur Diagnoses Fracture of proximal end of right humerus S42.201A Fracture of greater trochanter of right femur S72.111A Urinary tract infection N39.0 Intractable pain R52
[2023-05-12] MEDS: pantoprazole 40 mg SDV IVP (20:55)
[2023-05-12] MEDS: lactulose oral liq 20 gm/30 mL UDC PO (22:24)
[2023-05-13] VITALS (9 sets, daily range): BP systolic 121–134; BP diastolic 72–81; PULSE 96–103; RESP 16–20; TEMP 36.7–36.8; O2SAT 90–93
[2023-05-13] MEDS: oxyCODONE 5 mg IR Tab/Cap 10 MG PO ×2 (04:32→11:35)
[2023-05-13 04:41] LABS: Basophils % 0.4 %; Eosinophils # 0.2 10^3/uL (0.0-0.8); Eosinophils % 2.1 %; Hematocrit 27.3 % (36-47); Lymphocytes # 1.5 10^3/uL (0.8-4.8); Mean Corpuscular HGB Conc 34.4 g/dL (30-55); Mean Corpuscular Hemoglobin 32.2 pg (27-33); Mean Corpuscular Volume 93.5 fl (85-98); Mean Platelet Volume 10.1 fL (7.4-10.4); Monocytes # 0.8 10^3/uL (0.2-0.9); Monocytes % 11.1 %; Neutrophils # 4.88 10^3/uL (1.8-7.7); Neutrophils % 64.7 %; Nucleated Red Blood Cells % 0 %; Platelet Count 201 10^3/cmm (157-399); Red Blood Count 2.92 10^6/uL (3.85-5.65); Red Cell Distribution Width 13.6 % (12.1-15.1); White Blood Count 7.55 10^3/uL (3.29-11.43)
[2023-05-13] MEDS: oxyCODONE 10 mg ER (12 HR) Tablet PO (08:54)
[2023-05-13] MEDS: enoxaparin 40 mg/0.4 mL Syringe SUBCUT (08:55)
[2023-05-13] MEDS: cefTRIAXone 1,000 MG in sodium chloride 0.9% (plus) 50 ML 100 MG IV (08:55)
--- NOTE | 2023-05-13 11:16 | PM.DCS ---
Discharge Providers Date of Admission: 05/09/23 16:47 Date of Discharge: May 13, 2023 Attending Provider at Admission: Thee Bledsoe MD Attending Provider at Discharge: Thee Bledsoe MD Diagnoses at Discharge Discharge Diagnosis (1) Fracture of proximal end of right humerus: Status: Acute (2) Fracture of greater trochanter of right femur: Status: Acute (3) Urinary tract infection: Status: Acute (4) Intractable pain: Status: Acute Reason for Visit Reason for Visit: rt shoulder pain post fall Hospital Course Hospital Course Sarahi Joseph is a 78 year old female with no significant past medical history, no history of CAD, no history of COPD, no history of diabetes, no history of strokes, no significant medical problems, who presents [facility] for a fall. Patient tells me that today she was with her daughter at [facility], she got up to go to [employer], when she got up to the [employer], there is a fish tank, with linoleum gavin, she stepped towards it and slipped on the linoleum gavin, she fell no significant head trauma, no loss of consciousness, she fell on the right side, she could not get up off the floor, she tells me that a nurse rushed over and helped her until ambulance arrived, here in the emergency room she had imaging she has suffered a right humeral head fracture, currently in a sling, she has a right hip prosthesis, she tells me that she has her hip replacement in [place] it was elective for osteoarthritis, she is found to have an acute nondisplaced fracture of the proximal femur in the patient status post hip arthroplasty [id number] acute nondisplaced fracture anteriorly, lateral, posterior to the intertrochanteric stem, soft tissue hematoma just lateral to the right greater trochanter. ER provider Dr. Hackett, spoke to orthopedic doctor Dr. Mckinley, as per report from Dr. Daina Mckinley had reported that both fractures will be should be managed medically, pain control, PT OT, and deciding if patient needs placement. I was told that there was no acute interventions needed, and as per orthopedic surgery patient was currently not a surgical candidate. The hospitalist team was primarily called for these orthopedic fractures for pain control, due to intractable pain, and consideration of placement. I have gone over in detail with patient, unfortunately am not orthopedic physician, so I do not know the specific details involving fracture around the hardware for her right hip prosthesis, but I was told that it should be medically managed. I am going to order a CBC, CMP, blood work, start her on fluids, get her pain under control, have PT OT evaluate her and consideration of placement, patient is agreeable Patient was admitted to [facility] for pain control, PT OT, placement to residential facility Patient was admitted for intractable pain, discharged on pain regimen of oxycodone ER 10 mg scheduled twice daily, with oxycodone 10 mg every 4 hours as needed for breakthrough pain, pain control as of below For patient's fracture of proximal end of humerus, managed with a sling, nonweightbearing, will be discharged with shoulder immobilizer, follow-up with Dr. Mckinley as outpatient For fracture of greater trochanteric right femur and the patient is status post hip arthroplasty, patient is partial weightbearing right lower extremity, discharged to residential facility for PT OT, pain control as below Discharge on Rocephin for UTI For acute anemia, follow-up with Dr. Dyson as outpatient - Please use hydrocodone sparingly for pain -I have discharged on oxycodone ER 10 mg twice daily scheduled, this dose can be weaned over the next few days as her pain becomes better controlled, and mobility increases, monitor closely for narcotic overdose -I have also discharge her on oxycodone 10 mg every 4 hours as needed for breakthrough pain, try to use sparingly for pain, try to use before and after physical therapy, this dose of oxycodone can also be weaned over the next few days, as patient's pain becomes better controlled, mobility increases, monitor closely for narcotic overdose -Discharged with Narcan -I have gone over this with patient in detail -If any shortness of breath, please go to emergency room -Please continue to be mobile, continue calf exercises, monitor for calf pain, or calf swelling or sudden onset shortness of breath or bloody cough if so go to the emergency room as this could be an indicator of blood clots and is life-threatening -For your anemia please follow-up with Dr. Dyson below Physical Exam Const: COMMON NORMALS: no acute distress and patient oriented x3 Resp: COMMON NORMALS: normal respiratory effort, No retractions, No use of accessory muscles and clear to auscultation bilaterally AUSCULTATION: clear to auscultation bilaterally Cardio: COMMON NORMALS: regular rate, regular rhythm, S1 normal heart sound present and S2 normal heart sound present RATE: regular rate RHYTHM: regular rhythm HEART SOUNDS: S1 normal heart sound present and S2 normal heart sound present GI: COMMON NORMALS: Normal to inspection, nondistended, normoactive bowel sounds present and non-tender Extremity: COMMON NORMALS: no pedal edema Neuro: COMMON NORMALS: patient oriented x3 Psych: COMMON NORMALS: mental status grossly normal Discharge Data Studies Completed and Pending Completed Studies During Hospitalization Category Date Time Status CT pelvis wo con [id number] Stat Cat Scan 05/09/23 13:24 Completed XR chest 1V portable [id number] Routine Exams 05/09/23 19:57 Completed XR hip RT 2-3V wo/w pel* [id number] Stat Exams 05/09/23 12:11 Completed XR shoulder RT min 2V* [id number] Stat Exams 05/09/23 12:00 Completed Pending at discharge Category Date Time Status Complete Blood Count w/Auto AM LABS Lab 05/14/23 04:00 Ordered Complete Blood Count w/Auto AM LABS Lab 05/15/23 04:00 Ordered Occult Blood Stool [Immunochemical Fecal OCB] Routine Lab 05/12/23 08:14 Uncollected SARS Covid-2 Antigen Routine Lab 05/13/23 11:03 Uncollected Radiology Impressions Shoulder X-Ray 05/09/23 12:00 IMPRESSION: Acute comminuted humeral head fracture Hip/Pelvis X-Ray 05/09/23 12:11 IMPRESSION: No acute findings. Chest X-Ray 05/09/23 19:57 IMPRESSION: No posttraumatic changes in the chest. Laboratory Results WBC 7.55 10^3/uL (3.29-11.43) 05/13/23 04:20 RBC 2.92 10^6/uL (3.85-5.65) L 05/13/23 04:20 Hgb 9.40 g/dL (11.27-16.99) L 05/13/23 04:20 Hct 27.3 % (36-47) L 05/13/23 04:20 MCV 93.5 fl (85-98) D 05/13/23 04:20 MCH 32.2 pg (27-33) 05/13/23 04:20 MCHC 34.4 g/dL (30-55) D 05/13/23 04:20 RDW 13.6 % (12.1-15.1) 05/13/23 04:20 Plt Count 201 10^3/cmm (157-399) 05/13/23 04:20 MPV 10.1 fL (7.4-10.4) 05/13/23 04:20 Neut % (Auto) 64.7 % 05/13/23 04:20 Lymph % (Auto) 20.0 % 05/13/23 04:20 Eaton % (Auto) 11.1 % 05/13/23 04:20 Eos % (Auto) 2.1 % 05/13/23 04:20 Baso % (Auto) 0.4 % 05/13/23 04:20 Neut # (Auto) 4.88 10^3/uL (1.8-7.7) 05/13/23 04:20 Lymph # (Auto) 1.5 10^3/uL (0.8-4.8) 05/13/23 04:20 Eaton # (Auto) 0.8 10^3/uL (0.2-0.9) 05/13/23 04:20 Eos # (Auto) 0.2 10^3/uL (0.0-0.8) 05/13/23 04:20 Baso # (Auto) 0.0 10^3/uL (0.0-0.1) 05/13/23 04:20 Nucleated RBC % (auto) 0 % 05/13/23 04:20 Nucleated RBCs # 0.0 /100WBC 05/13/23 04:20 PT 13.60 SECONDS (12.1-14.9) 05/09/23 18:56 INR 1.01 (0.8-1.2) 05/09/23 18:56 Sodium 135 mmol/L (136-145) L 05/12/23 02:54 Potassium 3.7 mmol/L (3.5-5.1) 05/12/23 02:54 Chloride 102 mmol/L (98-107) 05/12/23 02:54 Carbon Dioxide 26 mmol/L (22-29) 05/12/23 02:54 Anion Gap 10.7 (5-19) 05/12/23 02:54 BUN 7 mg/dL (8-23) L 05/12/23 02:54 Creatinine 0.6 mg/dL (0.5-0.9) 05/12/23 02:54 GFR Calculation Not Reportable 05/12/23 02:54 Glucose 107 mg/dL (65-115) 05/12/23 02:54 Estimat Average Glucose 111 05/09/23 18:56 Hemoglobin A1c 5.5 % (4.0-6.0) 05/09/23 18:56 Calculated Osmolality 278 mOsm/kg (285-295) L 05/12/23 02:54 Lactic Acid 3.0 mmol/L (0.5-2.2) H 05/09/23 18:56 Lactic Acid (Sepsis) 2.7 mmol/L (0.5-2.2) H 05/09/23 21:07 Calcium 8.1 mg/dL (8.5-10.5) L 05/12/23 02:54 Phosphorus 2.0 mg/dL (2.5-4.5) L 05/12/23 02:54 Magnesium 1.8 mg/dL (1.7-2.3) 05/12/23 02:54 Iron 27 ug/dL (37-145) L 05/12/23 02:54 TIBC 171 mcg/dl 05/12/23 02:54 % Saturation 15.7 % (20-50) L 05/12/23 02:54 Unsat Iron Binding 144 ug/dL (112-347) 05/12/23 02:54 Ferritin 222 ng/mL (15-150) H 05/12/23 02:54 Total Bilirubin 0.3 mg/dL (0.15-1.2) 05/12/23 02:54 AST 12 U/L (0-32) 05/12/23 02:54 ALT 8 U/L (0-33) 05/12/23 02:54 Alkaline Phosphatase 72 U/L (35-105) 05/12/23 02:54 Troponin T Baseline 7 ng/L (0-10) 05/09/23 18:56 Troponin T 120 Minute 8.03 ng/L (0-10) 05/09/23 21:07 Delta Troponin T 1.03 ABS# (0-10) 05/09/23 21:07 Troponin T Hi Sens 6Hr 8.61 ng/L (0-10) 05/10/23 00:44 Troponin T Hi Sens 6Hr Delta 1.61 ng/L (0-12) 05/10/23 00:44 NT-Pro-B Natriuret Pep 64 pg/mL (0-450) 05/09/23 18:56 Total Protein 5.2 g/dL (6.6-8.7) L 05/12/23 02:54 Albumin 2.9 g/dL (3.5-5.2) L 05/12/23 02:54 Globulin 2.3 g/dL (1.3-4.6) 05/12/23 02:54 Triglycerides 100 mg/dL (0-150) 05/09/23 18:56 Cholesterol 233 mg/dL (0-200) H 05/09/23 18:56 LDL Cholesterol, Calc 146 mg/dL (50-129) H 05/09/23 18:56 HDL Cholesterol 67 mg/dL (60-100) 05/09/23 18:56 LDL/HDL Ratio 2.18 RATIO (0.00-3.22) 05/09/23 18:56 Cholesterol/HDL Ratio 3.48 mg/dL (0.0-4.40) 05/09/23 18:56 Vitamin B12 288 pg/mL (232-1245) 05/12/23 02:54 Folate 7.2 ng/mL (4.8-37.3) 05/12/23 02:54 Procalcitonin 0.11 ng/mL (0-0.5) 05/09/23 18:56 TSH 1.37 uIU/mL (0.27-4.20) 05/09/23 18:56 Urine Color Yellow (Yellow) 05/10/23 06:29 Urine Appearance Clear (CLEAR) 05/10/23 06:29 Urine pH 5 (5-7) 05/10/23 06:29 Ur Specific Isabella 1.025 (1.005-1.030) 05/10/23 06:29 Urine Protein Trace (Negative) 05/10/23 06:29 Urine Glucose (UA) Norm (Normal) 05/10/23 06:29 Urine Ketones 1+ (Negative) H 05/10/23 06:29 Urine Blood Neg (Negative) 05/10/23 06:29 Urine Nitrate Negative (Negative) 05/10/23 06:29 Urine Bilirubin Neg (Negative) 05/10/23 06:29 Urine Urobilinogen Neg mg/dL (Negative) 05/10/23 06:29 Ur Leukocyte Esterase Trace (Negative) H 05/10/23 06:29 Urine RBC 0-4 /hpf (0-2) H 05/10/23 06:29 Urine WBC 0-4 /hpf (0-5) H 05/10/23 06:29 Ur Squamous Epith Cells 10-15 /hpf (0-5) H 05/10/23 06:29 Amorphous Sediment Not Reportable 05/10/23 06:29 Urine Bacteria 2+ /hpf (NONE) H 05/10/23 06:29 Urine Mucus Trace /hpf 05/10/23 06:29 Vitals Last Vital Signs Temp 98.0 F 05/13/23 07:28 Pulse 96 05/13/23 07:28 Resp 20 H 05/13/23 08:54 BP 121/72 05/13/23 07:28 Pulse Ox 90 05/13/23 08:54 O2 Del Method Room Air 05/13/23 07:28 O2 Flow Rate 1 05/10/23 04:00 FiO2 21 05/09/23 21:01 Discharge Plan Discharge Patient Disposition: Home Condition: Stable Prescriptions: New cefdinir 300 mg capsule 300 mg PO BID 5 Days Qty: 10 0RF oxycodone 5 mg Tablet 10 mg PO Q4H PRN (Reason: Severe Pain) 7 Days Qty: 42 0RF OxyContin 10 mg Tablet,Oral Only,Ext.Rel.12 Hr 10 mg PO BID 7 Days Qty: 14 0RF Narcan 4 mg/actuation spray,non-aerosol 4 mg intranasal Q2M PRN (Reason: opioid overdose) Qty: 2 0RF Rx Instructions: spray 1 dose into ONE nostril; alternate nostrils w each dose Discontinued prednisolone acetate [Pred Forte] 1 % drops,suspension 1 drp ophthalmic (eye) Q4-5H Discharge Orders: Discharge Order (Routine); Ordered 05/13/23 Ordered By: Thee Bledsoe Other Ambulatory Orders: DME: Wheelchair (Order) Location: None Selected Ordered By: Addy Hackett Referrals: Natalie Mckinley MD [Physician] - 2 weeks Delbert Dyson MD [Hospitalist] - 1 week Discharge Diet: Usual diet Discharge Activity: Limit activity as instructed Patient Instructions: Proximal Humerus Fracture (ED), Opioid Safety, Pain Management Activity Restrictions/Additional Instructions: - Please use hydrocodone sparingly for pain -I have discharged on oxycodone ER 10 mg twice daily scheduled, this dose can be weaned over the next few days as her pain becomes better controlled, and mobility increases, monitor closely for narcotic overdose -I have also discharge her on oxycodone 10 mg every 4 hours as needed for breakthrough pain, try to use sparingly for pain, try to use before and after physical therapy, this dose of oxycodone can also be weaned over the next few days, as patient's pain becomes better controlled, mobility increases, monitor closely for narcotic overdose -I have gone over this with patient in detail -If any shortness of breath, please go to emergency room -Please continue to be mobile, monitor for calf pain, calf swelling or sudden onset shortness of breath if so is go to the emergency room as this could be an indicator of blood clots -For your anemia please follow-up with Dr. Dyson Discharge Attestations Time Spent in Discharge Care*: greater than 30 min Quality Metrics Clinical Quality Measures [ No reported AMI, CVA or VTE this stay] Coding Level of Care Code 92223 Total time (in minutes) for Discharge: 45 Diagnoses Fracture of proximal end of right humerus S42.201A Fracture of greater trochanter of right femur S72.111A Urinary tract infection N39.0 Intractable pain R52
--- NOTE | 2023-05-13 11:21 | PC.SOCIAL ---
IMM Updated Updated pt & daughter on IMM. No questions voiced. Provided pt a copy. Initialed, dated, & timed copy in chart.
[2023-05-13 11:52] LABS: SARS Covid-2 Antigen negative (Negative)
--- NOTE | 2023-05-13 12:10 | PC.NURSE ---
This nurse called and gave report to Radha at [facility]. All questions addressed and answered at this time.
--- NOTE | 2023-05-13 12:39 | PC.NURSE ---
Discharge delay- waiting on immobolizer for right arm
== END 2023-05-13 13:50 | disposition skilled nursing facility (03) | DRG 562 ==
LOC: ER 17:24 → MEDSURG 18:39
PROVIDERS: Admitting Provider Family Medicine; Emergency Provider Family Medicine; Visit Provider Family Medicine
DX: S42.201A Unspecified fracture of upper end of right humerus, initial encounter for closed fracture (principal); S72.114A Nondisplaced fracture of greater trochanter of right femur, initial encounter for closed fracture; M97.01XA Periprosthetic fracture around internal prosthetic right hip joint, initial encounter; N39.0 Urinary tract infection, site not specified; W01.0XXA Fall on same level from slipping, tripping and stumbling without subsequent striking against object, initial encounter; Z96.641 Presence of right artificial hip joint; F17.200 Nicotine dependence, unspecified, uncomplicated; Z66 Do not resuscitate; G89.11 Acute pain due to trauma; Z11.52 Encounter for screening for COVID-19
CPT/HCPCS: 36415; 71045; 72170; 72192; 73030; 73502; 80053; 80061; 81001; 82607; 82728; 82746; 83036; 83540; 83550; 83605; 83735; 83880; 84100; 84145; 84443; 84484; 85025; 85610; 87426; 94664; 96372; 96374; 96375; 96376; 97110; 97162; 97167; 97530; 97535; 99285; C9113; J0696; J1170; J1650; J2405; J3010; J7030; L3670

== ENCOUNTER → 2023-06-05 13:20 | Outpatient (BNVA) | payer MEDICARE, BC, SELFPAY | PROVIDERS: Visit Provider Specialist | DX: S42.201A Unspecified fracture of upper end of right humerus, initial encounter for closed fracture (principal); S72.114A Nondisplaced fracture of greater trochanter of right femur, initial encounter for closed fracture; M97.01XA Periprosthetic fracture around internal prosthetic right hip joint, initial encounter; X58.XXXA Exposure to other specified factors, initial encounter | CPT/HCPCS: 23600; 24530; 27246; 73030; 73502; 99204 ==

== ENCOUNTER → 2023-07-10 13:47 | Outpatient (BNVA) | payer MEDICARE, BC, SELFPAY | PROVIDERS: PCP Nurse Practitioner Family; Visit Provider Specialist | DX: S42.201A Unspecified fracture of upper end of right humerus, initial encounter for closed fracture (principal); S72.114A Nondisplaced fracture of greater trochanter of right femur, initial encounter for closed fracture; X58.XXXA Exposure to other specified factors, initial encounter; Z79.899 Other long term (current) drug therapy | CPT/HCPCS: 73030; 73502; 99024 ==